=== PATIENT | female | born 1995 | race Two or more races ===

== ENCOUNTER → 2017-12-17 | Emergency (ER) | payer OTHER ==
[~2017-12-17] VITALS: Ht 167.6 cm; Wt 77.1 kg
[~2017-12-17] MED LIST: AMOX1TAB12 PO; PROTONIX40 MG PO; ZANTAC300 MG PO
== END | disposition home or self-care (01) ==
LOC: ER 18:08
DX: K29.70 Gastritis, unspecified, without bleeding (principal); R10.11 Right upper quadrant pain

== ENCOUNTER 2018-02-08 03:04 | Emergency (ER) | payer OTHER ==
[~2018-02-08] VITALS: Ht 165.1 cm; Wt 77.1 kg
[2018-02-08] MEDS ORDERED: CEFUROXIME500 MG PO (06:21)
[2018-02-08] MEDS ORDERED: KETO10TA2 PO (06:21)
== END 2018-02-08 06:20 | disposition home or self-care (01) ==
LOC: ER 03:04
DX: N20.0 Calculus of kidney (principal); N39.0 Urinary tract infection, site not specified

== ENCOUNTER 2018-08-04 12:57 | Emergency (ER) | payer OTHER ==
[~2018-08-04] VITALS: Ht 165.1 cm; Wt 77.1 kg
[~2018-08-04 12:57] MED LIST changes: +CEFUROXIME500 MG PO; +KETO10TA2 PO
== END 2018-08-04 18:27 | disposition home or self-care (01) ==
LOC: ER 12:57
DX: J45.998 Other asthma (principal)

== ENCOUNTER 2018-11-14 13:26 | Emergency (ER) | payer OTHER ==
[~2018-11-14] VITALS: Ht 165.1 cm; Wt 79.4 kg
[2018-11-14] MEDS ORDERED: KETO10TA2 PO (18:58)
[2018-11-14] MEDS ORDERED: URIN D.S. TABL1 EACH PO (18:58)
== END 2018-11-14 19:15 ==
LOC: ER 13:26
DX: N13.39 Other hydronephrosis (principal)

== ENCOUNTER 2018-12-03 10:12 | Outpatient (CLI) | payer OTHER ==
[~2018-12-03 10:12] MED LIST changes: +URIN D.S. TABL1 EACH PO
== END 2018-12-03 10:35 | disposition home or self-care (01) ==
LOC: NUCLEAR 10:12
DX: N13.30 Unspecified hydronephrosis (principal)
CPT/HCPCS: 78708; A9539

== ENCOUNTER 2020-02-04 23:14 | Emergency (ER) | payer OTHER ==
[~2020-02-04] VITALS: Ht 165.1 cm; Wt 122.5 kg
[2020-02-05] MEDS ORDERED: KETO10TA2 PO (05:40)
[2020-02-05] MEDS ORDERED: CIPRO500 MG PO (05:40)
== END 2020-02-05 05:30 | disposition home or self-care (01) ==
LOC: ER 23:14
DX: N39.0 Urinary tract infection, site not specified (principal); N13.39 Other hydronephrosis; B96.29 Other Escherichia coli [E. coli] as the cause of diseases classified elsewhere

== ENCOUNTER 2020-12-14 16:40 | Emergency (ER) | payer OTHER ==
[~2020-12-14] VITALS: Ht 167.6 cm; Wt 86.2 kg
[~2020-12-14 16:40] MED LIST changes: +CIPRO500 MG PO
== END 2020-12-14 22:06 | disposition home or self-care (01) ==
LOC: ER 16:40
DX: M54.5 Low back pain (principal); N83.292 Other ovarian cyst, left side; N83.291 Other ovarian cyst, right side